=== PATIENT | male | born 1975 | race Caucasian/White ===

== ENCOUNTER → 2018-10-19 16:22 | Outpatient (CLI) | payer OTHER, SELFPAY ==
--- NOTE | 2019-07-07 11:46 | OP.PCM_ITS ---
Problem List (1) Trimalleolar fracture of right ankle Status: Acute Qualifiers: Encounter type: subsequent encounter Fracture type: closed Fracture healing: with routine healing Qualified Code(s): S82.851D - Displaced tri malleolar fracture of right lower leg, subsequent encounter for closed fracture with routine healing Report of Operation Date of Procedure: 07/07/19
--- NOTE | 2021-02-25 13:33 | EX.PCM.DISCH ---
Discharge Instructions Diet Discharge Diet: Light diet - advance as tolerated Activity Discharge Activity: May not drive while taking narcotic pain medications. May shower in (days): 1 (Keep umbilical dressing clean dry and intact for 5 days. Okay to tape off with a Ziploc bag to shower. Or lower shower and upper sponge bath.) Lifting Restrictions: no lifting >20 lbs x 2 wks, no strenuous exercise for 4 wks Dressing / Incision Call your doctor if your incision/area has: Continuous Slow Oozing, Sudden Increased Bleeding, Increased Pain/ Swelling, Increased Redness, Foul Smelling Discharge and Swelling at the incision site Call your doctor if you observe: Fever of 101 or Higher Remove Dressing in: 2 days Cleanse incision/area with: Soap & Water Additional Dressing/Incision Instructions:: Steri-Strips will fall off in 7 to 10 days, if they do not fall off okay to remove after 10 days. Follow Up Care Please Follow Up With: Scarlet Vasques MD When: Call the office for a follow-up appointment 2 weeks; after 5 PM and on the weekends call [phone] with any concerns. Test Results: Test results from this visit will be discussed in further detail at your follow-up appointment, if applicable. Discharge Plan Admission Attending Provider: Pushpa Ramírez Primary Care Provider: Pushpa Ramírez Discharge Orders/Prescriptions Prescriptions: No Action methotrexate sodium 2.5 MG tablet 7.5 mg PO Q7D RF: 0 oxycodone-acetaminophen [Percocet] 5-325 mg tablet 1 tab PO ONCE PRN (Reason: pain) Qty: 7 RF: 0
--- NOTE | 2021-03-28 12:14 | PCM.DC ---
Discharge Instructions Diet Discharge Diet: No restrictions Activity Discharge Activity: Return to Normal Activity, May Not Drive, May not drive while taking narcotic pain medications. and May Shower Return to work on:: 03/31/21 May shower in (days): 1 May resume sexual activity in: No Restrictions Weight Bearing Status: Weight bearing as tolerated Dressing / Incision Call your doctor if your incision/area has: Continuous Slow Oozing, Sudden Increased Bleeding, Increased Pain/ Swelling, Increased Redness, Foul Smelling Discharge and Swelling at the incision site Call your doctor if you observe: Fever of 101 or Higher, Coldness, Increased Pain, Numbness or Tingling, Change in Color, Inability to urinate, Calf discomfort and Uncontrolled pain Suture Line Care: Avoid Pulling/Pushing and Avoid Pinching/Bending Change Dressing in: 1 day Remove Dressing in: 1 day Cleanse incision/area with: Soap & Water and Keep Dressing Clean & Dry Follow Up Care Please Follow Up With: paz When: 2 to 4-week Test Results: Test results from this visit will be discussed in further detail at your follow-up appointment, if applicable. Discharge Plan Admission Reason For Visit: Pain Block Attending Provider: Pushpa Ramírez Primary Care Provider: Pushpa Ramírez Instructions Additional Instructions / Restrictions: Okay to take ibuprofen 400-600 mg PO q6hr PRN along with the Percocet. Avoid Tylenol since there is already Tylenol in the Percocet. Take all pain meds with food. Percocet can cause constipation recommend taking daily stool softener (i.e. Colace/docusate) while taking the pain meds. Recommend starting some MiraLAX in 1 to 2 days if no bowel movement. If still no bowel movement the following day recommend taking magnesium citrate half the bottle and waiting 4-6 hours if still no results take the other half the bottle. Discharge Orders/Prescriptions Prescriptions: Continued methotrexate sodium 2.5 MG tablet 7.5 mg PO Q7D RF: 0 oxycodone-acetaminophen [Percocet] 5-325 mg tablet 1 tab PO ONCE PRN (Reason: pain) Qty: 7 RF: 0 Referrals / Follow Up: Pushpa Ramírez MD [Primary Care Provider] - Tomasz Caraballo MD [STAFF PHYSICIAN] - Disposition Patient Disposition: Home, self care
--- NOTE | 2021-03-28 12:20 | OP.PCM_ITS ---
Problems Associated Problem List Diagnoses (1) Annular tear of lumbar disc: Report of Operation Date of Procedure: 03/28/21 Pre-Operative Diagnosis: Lumbar spine pain Post-Operative Diagnosis: Degenerative disc disease Surgery/Procedure Performed:: Lumbar facet block Description of Surgical Findings:: Under sterile conditions. Patient placed in the prone position, pressure points were padded, patient was ready from the nursing and the anesthesia team. After identification of the side and the target area for the block under guided fluoroscopy, the entry site was marked with marking pen. I used Betadine for sterilization of the skin, sterile draping were applied. Using 25-gauge needle to infiltrate the skin with local anesthesia using preservative-free lidocaine 0.5% injected 2.5 mL at each site of entry. Using oblique fluoroscopy, accessed the right medial nerve branch supplying the [right] lumbar facets L3-4, L4-5, L5-S1 using 22-gauge spinal needle. After confirmation of appropriate needle placement to the targeted area with AP and lateral fluoroscopy, injected 2.5 mL mixture of preservative-free Marcaine 0.5% and Kenalog [20] mg at each site. [place] was removed, pressure dressing were applied. Patient tolerated the procedure well and was taken to the recovery. Surgeon: Tomasz Caraballo Type of Anesthesia: MAC and MAC/Supplemental/Local Estimated Blood Loss (mL): elizabeth
--- NOTE | 2021-03-28 12:29 | PCM.OPRPT ---
Report of Operation Pre-Operative Diagnosis: DDD Post-Operative Diagnosis: Same Surgery/Procedure Performed:: Lumbar epidural steroid injection under fluoroscopy guidance at the level of L4-5 Description of Surgical Findings:: Under sterile conditions. Patient placed in the prone position, pressure points were padded, patient was ready from the nursing and the anesthesia team. After identification of the side and the target area for the block under guided fluoroscopy, the entry site was marked with marking pen. I used Betadine for sterilization of the skin, sterile draping were applied. Using 25-gauge needle to infiltrate the skin with local anesthesia using preservative-free lidocaine 0.5% injected 2.5 mL at site of entry. Using guided fluoroscopy, accessed the the posterior epidural space using 18-gauge Touhy needles under midline approach, accessed the site was assisted with lateral fluoroscopy, followed by using ddlq-jy-besmoyiynk technique using preservative-free normal saline, negative aspiration of CSF and blood. Injected contrast solution [2.5] mL under live fluoroscopy which showed good spread of the contrast to the posterior epidural space and to the targeted area of the injection at[ L4-5]. Injected [5] mL of mixture of preservative-free lidocaine and Kenalog [80] mg for the procedure which showed appropriate spread in the epidural space. [place] was removed, pressure dressing were applied. Patient tolerated the procedure well and was taken to the recovery. Surgeon: Tomasz Caraballo Type of Anesthesia: MAC/Supplemental/Local Estimated Blood Loss (mL): None Complications No complications Admit VTE Documentation VTE Present on Admission: No VTE Pharm Prophylaxis ordered?: No Reason prophylaxis not ordered:: Procedure Not Indicated
--- NOTE | 2021-03-28 12:30 | PCM.OPRPT ---
Problems Associated Problem List Diagnoses (1) Annular tear of lumbar disc: Report of Operation Pre-Operative Diagnosis: Lumbar degenerative disc disease and lumbar radiculopathy Post-Operative Diagnosis: Same Surgery/Procedure Performed:: Lumbar epidural steroid injection under fluoroscopy guidance at the level of L4-5 Description of Surgical Findings:: Under sterile conditions. Patient placed in the prone position, pressure points were padded, patient was ready from the nursing and the anesthesia team. After identification of the side and the target area for the block under guided fluoroscopy, the entry site was marked with marking pen. I used Betadine for sterilization of the skin, sterile draping were applied. Using 25-gauge needle to infiltrate the skin with local anesthesia using preservative-free lidocaine 0.5% injected 2.5 mL at site of entry. Using guided fluoroscopy, accessed the the posterior epidural space using 18-gauge Touhy needles under midline approach, accessed the site was assisted with lateral fluoroscopy, followed by using nito-ls-aywslbfvzp technique using preservative-free normal saline, negative aspiration of CSF and blood. Injected contrast solution [2.5] mL under live fluoroscopy which showed good spread of the contrast to the posterior epidural space and to the targeted area of the injection at[ L4-5]. Injected [5] mL of mixture of preservative-free lidocaine and Kenalog [80] mg for the procedure which showed appropriate spread in the epidural space. [place] was removed, pressure dressing were applied. Patient tolerated the procedure well and was taken to the recovery. Surgeon: Tomasz Caraballo Type of Anesthesia: MAC/Supplemental/Local Estimated Blood Loss (mL): None Complications No complications Admit VTE Documentation VTE Present on Admission: No VTE Pharm Prophylaxis ordered?: No Reason prophylaxis not ordered:: Procedure Not Indicated
--- NOTE | 2021-03-28 12:34 | OP.PCM_ITS ---
Problems Associated Problem List Diagnoses (1) Spondylosis without myelopathy or radiculopathy, lumbar region: Report of Operation Date of Procedure: 03/28/21 Pre-Operative Diagnosis: Lumbar facet spondylosis Post-Operative Diagnosis: Same Surgery/Procedure Performed:: Lumbar facets median nerve branch block at the level of the L3-4, L4-5, L5-S1 Description of Surgical Findings:: Under sterile conditions. Patient placed in the prone position, pressure points were padded, patient was ready from the nursing and the anesthesia team. After identification of the side and the target area for the block under guided fluoroscopy, the entry site was marked with marking pen. I used Betadine for sterilization of the skin, sterile draping were applied. Using 25-gauge needle to infiltrate the skin with local anesthesia using preservative-free lidocaine 0.5% injected 2.5 mL at each site of entry. Using oblique fluoroscopy, accessed the right medial nerve branch supplying the [right] lumbar facets L3-4, L4-5, L5-S1 using 22-gauge spinal needle. After confirmation of appropriate needle placement to the targeted area with AP and lateral fluoroscopy, injected 2.5 mL mixture of preservative-free Marcaine 0.5% and Kenalog [20] mg at each site. [place] was removed, pressure dressing were applied. Patient tolerated the procedure well and was taken to the recovery. Surgeon: Tomasz Caraballo Type of Anesthesia: MAC/Supplemental/Local Estimated Blood Loss (mL): None Complications No complications Admit VTE Documentation VTE Present on Admission: No VTE Mechan Device Prophylaxis: None Reason prophylaxis not ordered:: Procedure Not Indicated
--- NOTE | 2021-03-28 12:35 | CON.PCM_ITS ---
Assessment & Plan Assessment/Plan (1) Spondylosis without myelopathy or radiculopathy, lumbar region: (2) Annular tear of lumbar disc: HPI Consult Data Date of Consult: 03/28/21 HPI Narrative HPI Narrative: ANESTHESIA TEST, is a 45 M who presents [facility] Medical History (Updated 03/28/21 @ 12:[address] Tomasz Caraballo MD) Annular tear of lumbar disc Heart failure Spondylosis without myelopathy or radiculopathy, lumbar region Home Medications methotrexate sodium 7.5 mg PO Q7D 12/26/15 [History Last Taken Unknown] oxycodone-acetaminophen 5 mg-325 mg tablet 1 tab PO ONCE PRN #7 tab 09/09/18 [Rx Last Taken Unknown] Allergy/AdvReac Type Severity Reaction Status Date / Time gluten AdvReac Mild Upset Verified 01/16/21 15:21 Stomach ROS Constitutional Constitutional: Reports change in weight and other
== END ==
PROVIDERS: PCP Internal Medicine Cardiovascular Disease; Visit Provider Internal Medicine Cardiovascular Disease
DX: Z00.00 Encounter for general adult medical examination without abnormal findings (principal)